=== PATIENT | female | born 1995 | race Caucasian/White ===

== ENCOUNTER 2017-05-04 23:06 | Emergency (ER) | payer BC, MEDICAID ==
--- NOTE | 2017-05-04 23:36 | EDM.PDOC ---
ED HPI GENERAL MEDICAL PROBLEM - General Chief Complaint: Headache Stated Complaint: FACE PAIN Time Seen by Provider: 05/04/17 23:30 Source of Information: Reports: Patient History Limitations: Reports: No Limitations - History of Present Illness INITIAL COMMENTS - FREE TEXT/NARRATIVE: c/o left facial pain, notes fell down stairs last nite around 2 am. Denied loss of consciousness, Admits to involvement of alcohol. Denies neck pain, Swelling around left eye and area tender. Left side of forehead sore. Scrape to right knee, No other injuries noted. Denies altercation. Location: Reports: Face Treatments VAT CLEANER: Reports: Other (see below) Other Treatments VAT CLEANER: ibuprofen 800mg - Related Data Allergies Allergy/AdvReac Type Severity Reaction Status Date / Time cat dander Allergy Sneezing Verified 10/08/15 20:35 dog dander Allergy Sneezing Verified 10/08/15 20:35 horse dander Allergy Sneezing Verified 10/08/15 20:35 seasonal Allergy Sneezing Uncoded 10/08/15 20:35 Home Meds: Home Meds Albuterol [Ventolin HFA] 1 puff INH ASDIRECTED PRN 01/17/15 [History] Vit with Ca/FA/Iron [ Plus Iron] 1 tab PO DAILY 06/25/15 [ History] Past Medical History - Past Health History Medical/Surgical History: Denies Medical/Surgical History Respiratory History: Reports: Asthma 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: - Past Surgical History Musculoskeletal Surgical History: Reports: Other (See Below) Other Musculoskeletal Surgeries/Procedures:: wrist surgery Social & Family History - Family History Family Medical History: Noncontributory - Tobacco Use Smoking Status *Q: Current Every Day Smoker Years of Tobacco use: 10 Packs/Tins Daily: 0.4 Used Tobacco, but Quit: No Second Hand Smoke Exposure: Yes - Caffeine Use Caffeine Use: Reports: Coffee, Soda - Alcohol Use Days Per Week of Alcohol Use: 3 Number of Drinks Per Day: 3 Total Drinks Per Week: 9 - Recreational Drug Use Recreational Drug Use: No Drug Use in Last 12 Months: No Recreational Drug Type: Reports: Methamphetamine - Living Situation & Occupation Living situation: Reports: with Family ED ROS GENERAL - Review of Systems Review Of Systems: See Below HEENT: Reports: Eye Pain. Denies: Eye Discharge, Vision Change Respiratory: Reports: No Symptoms Cardiovascular: Reports: No Symptoms GI/Abdominal: Reports: No Symptoms Musculoskeletal: Denies: Neck Pain, Back Pain Skin: Reports: Bruising (around left eye and left forehead). Denies: Wound Neurological: Reports: Headache - Physical Exam Exam: See Below Exam Limited By: No Limitations General Appearance: Alert, Mild Distress Eye Exam: Left Eye: Conjunctival Injection (blood lateral conjunctiva, Fundi WNL globe intack ), Bilateral Eye: EOMI, PERRL Ears: Normal External Exam, Normal TMs Nose: Normal Inspection. No: Nasal Drainage Throat/Mouth: Normal Inspection Head Exam: Normocephalic, Facial Ecchymosis, Facial Swelling, Facial Tenderness. No: Facial Lacerations Neck: Normal Inspection. No: Tender Lateral, Tender Midline Respiratory/Chest: No Respiratory Distress, Lungs Clear, Normal Breath Sounds Cardiovascular: Normal Peripheral Pulses, Regular Rate, Rhythm GI/Abdominal: Normal Bowel Sounds, Soft Extremities: Normal Inspection Psychiatric: Normal Affect, Normal Mood Skin Exam: Warm, Dry, Ecchymosis (lefft periorbital area. left lateral forehead ) Course - Vital Signs Last Recorded V/S: Last Vital Signs Temp 98.2 F 05/04/17 23:23 Pulse 84 05/04/17 23:56 Resp 18 05/04/17 23:56 BP 126/78 05/04/17 23:56 Pulse Ox 96 05/04/17 23:56 - Radiology Interpretation Free Text/Narrative:: Head and maxilofacial CT negative. Departure - Departure Time of Disposition: 00:35 Disposition: Home, Self-Care 01 Condition: Fair Clinical Impression: Conjunctival hyperemia of left eye, Fall (on) (from) other stairs and steps, initial encounter Facial contusion Qualifiers: Encounter type: initial encounter Qualified Code(s): S00.83XA - Contusion of other part of head, initial encounter - Discharge Information Instructions: Head Injury, Adult Forms: ED Department Discharge Additional Instructions: tylenol or ibuprofen alternating every 4 hours as needed for discomfort light activity 48 hours, follow up in eye clinic tomorrow.
[2017-05-04 23:57] VITALS: BP 126/78
== END 2017-05-05 00:42 | disposition home or self-care (01) ==
LOC: DL.ED 23:06
DX: S00.83XA Contusion of other part of head, initial encounter (principal); H11.432 Conjunctival hyperemia, left eye; J45.909 Unspecified asthma, uncomplicated; F17.210 Nicotine dependence, cigarettes, uncomplicated; W10.9XXA Fall (on) (from) unspecified stairs and steps, initial encounter; Z91.048 Other nonmedicinal substance allergy status
CPT/HCPCS: 70450; 70486; 99284

== ENCOUNTER 2020-11-07 17:17 | Emergency (ER) | payer BC | END 2020-11-07 18:25 | disposition left against medical advice (07) | LOC: DL.ED 17:17 | DX: Z53.21 Procedure and treatment not carried out due to patient leaving prior to being seen by health care provider (principal) ==

== ENCOUNTER 2022-01-07 14:51 | Emergency (ER) | payer MEDICAID ==
[2022-01-07 15:08] VITALS: BP 152/99; PULSE 78
== END 2022-01-07 15:55 | disposition home or self-care (01) ==
LOC: DL.ED 14:51
DX: M62.838 Other muscle spasm (principal); K21.9 Gastro-esophageal reflux disease without esophagitis; E03.9 Hypothyroidism, unspecified; F17.210 Nicotine dependence, cigarettes, uncomplicated; Z91.09 Other allergy status, other than to drugs and biological substances; Z79.899 Other long term (current) drug therapy
CPT/HCPCS: 99282; 99283

== ENCOUNTER 2022-07-20 14:53 | Emergency (ER) | payer MEDICAID ==
[2022-07-20] MEDS ORDERED: predniSONE 20 MG Tab PO ONE ×2 (14:54→17:08)
[2022-07-20 16:33] VITALS: BP 141/93; PULSE 67
[2022-07-20] MEDS ORDERED: predniSONE 20 MG Tab ONE (17:14)
== END 2022-07-20 17:21 | disposition home or self-care (01) ==
LOC: DL.ED 14:53
DX: J45.41 Moderate persistent asthma with (acute) exacerbation (principal); J10.1 Influenza due to other identified influenza virus with other respiratory manifestations; K21.9 Gastro-esophageal reflux disease without esophagitis; Z91.09 Other allergy status, other than to drugs and biological substances; Z79.899 Other long term (current) drug therapy
CPT/HCPCS: 99284; J7512

== ENCOUNTER 2022-08-01 14:18 | Emergency (ER) | payer MEDICAID ==
[2022-08-01 16:21] VITALS: BP 143/99; PULSE 83
== END 2022-08-01 16:35 | disposition home or self-care (01) ==
LOC: DL.ED 14:18
DX: K92.0 Hematemesis (principal); E03.9 Hypothyroidism, unspecified; K21.9 Gastro-esophageal reflux disease without esophagitis; F17.210 Nicotine dependence, cigarettes, uncomplicated; Z91.09 Other allergy status, other than to drugs and biological substances; Z79.899 Other long term (current) drug therapy
CPT/HCPCS: 99283

== ENCOUNTER 2024-03-06 12:59 | Emergency (ER) | payer MEDICAID ==
[2024-03-06 13:56] VITALS: BP 158/89; PULSE 87
== END 2024-03-06 15:41 | disposition left against medical advice (07) ==
LOC: DL.ED 12:59
DX: Z53.21 Procedure and treatment not carried out due to patient leaving prior to being seen by health care provider (principal)
CPT/HCPCS: 87804; U0002

== ENCOUNTER 2024-03-06 19:17 | Emergency (ER) | payer MEDICAID ==
[2024-03-06 19:48] LABS: BASOPHILS PERCENT AUTO 0.3 % (0.0-1.0); HEMATOCRIT 41.6 % (37.0-47.0); HEMOGLOBIN 14.4 g/dL (12.0-16.0); LYMPHOCYTES PERCENT AUTO 11.7 % (20.5-50.1); MEAN CORPUSCULAR HEMOGLOBIN 33.1 pg (27.0-34.0); MEAN CORPUSCULAR HGB CONC 34.6 g/dL (33.0-35.0); MEAN CORPUSCULAR VOLUME 95.6 fL (80-100); MONOCYTES PERCENT AUTO 5.2 % (2-8); NEUTROPHILS PERCENT AUTO 82.8 % (42.2-75.2); PLATELET COUNT,PLT 269 10^3/uL (150-450); RED BLOOD CELL COUNT 4.35 10^6/uL (4.2-5.4); WHITE BLOOD CELL COUNT,WBC 15.2 10^3/uL (5.0-10.0)
[2024-03-06] MEDS: Ondansetron 4 MG/2 ML SDV IVPUSH ONE (19:56)
[2024-03-06] MEDS: Sodium Chloride 0.9% 10 ML Syringe FLUSH PRN (19:56)
[2024-03-06] MEDS: Sodium Chloride 0.9% 1,000 ML IV ONE (19:57)
[2024-03-06 20:06] VITALS: BP 143/91; PULSE 84
[2024-03-06 20:08] LABS: A/G RATIO 1.2; ALANINE AMINOTRANSFERASE,ALT 33 U/L (14-59); ALBUMIN 4.5 g/dL (3.4-5.0); ALKALINE PHOSPHATASE 72 U/L (46-116); ANION GAP 18.2 mEq/L (7-13); ASPARTATE AMNIOTRANSFERASE,AST 32 U/L (15-37); BILIRUBIN TOTAL 2.1 mg/dL (0.2-1.0); BLOOD UREA NITROGEN,BUN 14 mg/dL (7-18); BUN/CREATININE RATIO 15.7 (No establ ref range); CALCIUM 10.2 mg/dL (8.5-10.1); CARBON DIOXIDE,CO2 24 mmol/L (21-32); CHLORIDE,CL 98 mmol/L (98-107); CREATININE 0.89 mg/dL (0.55-1.02); GLUCOSE RANDOM 100 mg/dL (70-99); LIPASE 27 U/L (16-77); MAGNESIUM 1.7 mg/dL (1.8-2.4); POTASSIUM,K 3.2 mmol/L (3.5-5.1); PROTEIN TOTAL,TP 8.2 g/dL (6.4-8.2); SODIUM,NA 137 mmol/L (136-145)
[2024-03-06 20:13] LABS: C-REACTIVE PROTEIN < 0.50 ng/dL (<=0.50); ESTIMATED GFR 89 mL/min (>=60); ETHANOL BLOOD MEDICAL < 3 mg/dL (0)
[2024-03-06 21:12] LABS: APPEARANCE,URINE CLEAR (CLEAR); BILIRUBIN,URINE SMALL (NEGATIVE); COLOR,URINE YELLOW (YELLOW); GLUCOSE,URINE NEGATIVE (NEGATIVE); KETONES,URINE >=160 (NEGATIVE); LEUKOCYTE ESTERASE,URINE NEGATIVE (NEGATIVE); NITRITE,URINE NEGATIVE (NEGATIVE); OCCULT BLOOD,URINE TRACE-INTACT (NEGATIVE); PH,URINE 8.5 (5.0-9.0); PROTEIN,URINE 100 (NEGATIVE)
[2024-03-06 21:13] LABS: AMPHETAMINES,URINE NEGATIVE (NEGATIVE); BARBITURATES,URINE NEGATIVE (NEGATIVE); BENZODIAZEPINE,URINE NEGATIVE (NEGATIVE); MDMA (ECSTASY), URINE NEGATIVE (NEGATIVE); METHADONE,URINE NEGATIVE (NEGATIVE); METHAMPHETAMINES,URINE NEGATIVE (NEGATIVE); OPIATES,URINE NEGATIVE (NEGATIVE); OXYCODONE,URINE NEGATIVE (NEGATIVE); PHENCYCLIDINE,URINE NEGATIVE (NEGATIVE); TCA,URINE NEGATIVE (NEGATIVE)
[2024-03-06] MEDS: Promethazine 25 MG/ML SDV IM ONE (21:17)
[2024-03-06 21:24] LABS: LACTIC ACID 1.1 mmol/L (0.4-2.0)
[2024-03-06 21:26] LABS: EPITHELIAL CELLS,URINE MODERATE /HPF (NOT SEEN); WBC,URINE 0-5 /HPF (0-5/HPF)
[2024-03-06 21:27] LABS: BACTERIA,URINE MODERATE /HPF (0-FEW/HPF); MUCUS,URINE MODERATE /LPF (NOT SEEN)
[2024-03-06] MEDS: Iopamidol 612 MG/ML 100 ML Bottle IVPUSH ONE (21:29)
[2024-03-06] MEDS: Prochlorperazine 25 MG Supp RECTAL ONE (23:35)
[2024-03-06] MEDS: Take Home: Ondansetron 4 MG Tab.DIS, 5 Tab Pack PO ONE (23:49)
== END 2024-03-07 00:01 | disposition home or self-care (01) ==
LOC: DL.ED 19:17
DX: R11.2 Nausea with vomiting, unspecified (principal); F12.10 Cannabis abuse, uncomplicated; K52.9 Noninfective gastroenteritis and colitis, unspecified; E87.6 Hypokalemia; E83.42 Hypomagnesemia; E80.6 Other disorders of bilirubin metabolism; E87.20 Acidosis, unspecified; F17.200 Nicotine dependence, unspecified, uncomplicated; J45.909 Unspecified asthma, uncomplicated; K21.9 Gastro-esophageal reflux disease without esophagitis; E03.9 Hypothyroidism, unspecified; F17.210 Nicotine dependence, cigarettes, uncomplicated; Z91.048 Other nonmedicinal substance allergy status; Z91.09 Other allergy status, other than to drugs and biological substances; Z79.51 Long term (current) use of inhaled steroids; Z79.899 Other long term (current) drug therapy
CPT/HCPCS: 36415; 74177; 80053; 80305-QW; 80307; 81001; 81025; 83605; 83690; 83735; 85025; 86140; 96361; 96372; 96374; 99284; 99284-25; A9270-GY; J2405; J2550; J3490; J7030; Q0162; Q9967